=== PATIENT | female | born 1960 | race Hispanic/Latino ===

== ENCOUNTER 2017-06-30 13:30 | Emergency (ER) | payer OTHER ==
[2017-06-30 13:33] VITALS: BMI 27.4
[2017-06-30] MEDS ORDERED: Sodium Chloride 0.9% 1,000 ML IV STA (13:45)
--- NOTE | 2017-06-30 13:49 | ED PDOC ---
HPI: Abdomen Time Seen by Provider: 06/30/17 13:35 Chief Complaint (Nursing): Abdominal Pain Chief Complaint (Provider): Abd pain History Per: Patient History/Exam Limitations: no limitations Onset/Duration Of Symptoms: Days (Today) Current Symptoms Are (Timing): Better Additional Complaint(s): Pt. with left upper abd pain and left upper side pain. Went to [facility] and had several nonbloody vomit episodes there. Given toradol and sent to the ED. Currently no pain, nausea, vomit. No weakness, dizziness, chest pain, dysuria, hematuria. Never had this before. No new food or drinks. Past Medical History Reviewed: Nursing Documentation, Vital Signs Vital Signs: Last Vital Signs Temp 97.9 F 06/30/17 13:34 Pulse 68 06/30/17 13:34 Resp 18 06/30/17 13:34 BP 141/75 06/30/17 13:34 Pulse Ox 99 06/30/17 13:49 - Medical History PMH: HTN, Hypercholesterolemia - Surgical History Surgical History: No Surg Hx - Family History Family History: States: Unknown Family Hx - Social History Ex-Smoker (has not smoked in the last 12 months): No Alcohol: None Drugs: Denies - Home Medications Home Medications: Ambulatory Orders Medication Instructions Recorded Ibuprofen [Motrin] 600 mg PO TID 7 Days tab 06/30/17 Tamsulosin [Flomax] 0.4 mg PO DAILY PRN #6 cap 06/30/17 - Allergies Allergies/Adverse Reactions: Allergies Allergy/AdvReac Type Severity Reaction Status Date / Time No Known Allergies Allergy Verified 06/30/17 13:32 Review of Systems ROS Statement: Except As Marked, All Systems Reviewed And Found Negative Gastrointestinal: Positive for: Nausea, Vomiting, Abdominal Pain Musculoskeletal: Positive for: Back Pain Physical Exam - Reviewed Nursing Documentation Reviewed: Yes Vital Signs Reviewed: Yes - Physical Exam Appears: Positive for: Non-toxic, No Acute Distress Head Exam: Positive for: ATRAUMATIC, NORMAL INSPECTION, NORMOCEPHALIC Skin: Positive for: Normal Color, Warm, DRY Eye Exam: Positive for: EOMI, Normal appearance, PERRL ENT: Positive for: Normal ENT Inspection Neck: Positive for: Normal, Painless ROM Cardiovascular/Chest: Positive for: Regular Rate, Rhythm Respiratory: Positive for: CNT, Normal Breath Sounds Gastrointestinal/Abdominal: Positive for: Normal Exam, Bowel Sounds, Soft. Negative for: Tenderness Back: Positive for: Normal Inspection. Negative for: L CVA Tenderness, R CVA Tenderness Extremity: Positive for: Normal ROM. Negative for: Tenderness, Pedal Edema Neurologic/Psych: Positive for: Alert, Oriented - Laboratory Results Result Diagrams: 06/30/17 14:20 06/30/17 14:20 Interpretation Of Abn Labs: 14.1 wbc; mild elevated liver enzymes; bun 26 - ECG ECG: Positive for: Interpreted By Me, Viewed By Me ECG Rhythm: Positive for: Normal QRS, Normal ST Segment, Sinus Rhythm O2 Sat by Pulse Oximetry: 99 Pulse Ox Interpretation: Normal - Progress ED Course And Treament: IMPRESSION: There is a small pericardial effusion. Nonobstructing small calculus lower pole collecting system left kidney. The infiltration changes seen in the left inferior perinephric fat nonspecific. Rule out recently passed calculus. Rule out post infectious/ inflammatory etiology. : Correlation with urinalysis recommended. Urinary bladder incompletely distended which presumably accounts for slight thick-walled appearance correlation with urinalysis suggested. Small calcified uterine fibroid. Appendix is not seen consistent with this patient's history of appendectomy as per chief technologist notation. There are a few scattered colonic diverticula however no radiographic evidence of acute diverticulitis. 1744: Stable. AAOx3. Pain free. No vomit. Had IV fluids. Likely passed stone. Will dc with flomax and motrin. Pt. to fu with pcp for pericardial fluid. Urology for stone. Tolerated PO. Disposition - Clinical Impression Clinical Impression: Abdominal pain, Kidney stone, Pericardial effusion, Dehydration, Elevated liver enzymes - Patient ED Disposition Is Patient to be Admitted: No Counseled Patient/Family Regarding: Studies Performed, Diagnosis, Need For Followup, Rx Given - Disposition Referrals: [facility] [Outside] - 07/01/17 Armen Crocker Jr., MD [Staff Provider[facility] Disposition: Routine/Home Disposition Time: 17:51 Condition: STABLE Additional Instructions: Return if not better in 3 days. You have small amount of fluid around your heart. See the primary care doctor without fail in 2 days for further evaluation and tx. You have mild elevated liver enzymes and need to see your doctor without fail in 2 days. Prescriptions: Ibuprofen [Motrin] 600 mg PO TID 7 Days tab Tamsulosin [Flomax] 0.4 mg PO DAILY PRN #6 cap PRN Reason: Pain Instructions: Kidney Stones (ED), Acute Abdominal Pain (ED), Dehydration (ED), Pericardial Effusion (ED) Forms: [facility] [employer] (French), [facility] ED School/Work Excuse
[2017-06-30 14:27] LABS: BASO # 0.1 K/uL (0.0-0.2); BASO % 0.4 % (0.0-2.0); EOS # 0.1 K/uL (0.0-0.7); EOS % 0.5 % (0.0-4.0); LYMPH % 7.2 % (20.0-40.0); MEAN CELL VOLUME 89.7 fl (81.0-99.0); MEAN CORPUSCULAR HEMOGLOBIN 30.4 pg (27.0-31.0); MEAN CORPUSCULAR HGB CONC 33.9 g/dL (33.0-37.0); MEAN PLATELET VOLUME 9.8 fl (7.2-11.7); MONO # 0.7 K/uL (0.0-0.8); MONO % 4.8 % (0.0-10.0); NEUT # 12.3 K/uL (1.8-7.0); NEUT % 87.1 % (50.0-75.0); NRBC % 0.1 % (0.0-0.0); PLATELET COUNT 240 K/uL (130-400); WHITE BLOOD COUNT 14.1 K/uL (4.8-10.8)
[2017-06-30 14:36] LABS: ALB/GLOB RATIO 1.7 (1.0-2.1); ALKALINE PHOSPHATASE 56 U/L (38-126); ALT/SGPT 67 U/L (9-52); AST/SGOT 41 U/L (14-36); BILIRUBIN,TOTAL 0.5 mg/dl (0.2-1.3); BLOOD UREA NITROGEN 26 mg/dl (7-17); CALCIUM 9.7 mg/dL (8.4-10.2); CARBON DIOXIDE 28 mmol/L (22-30); CHLORIDE 106 mmol/L (98-107); GFR AFRICAN-AMERICAN > 60; GLUCOSE,RANDOM 104 mg/dL (65-105); LIPASE 115 U/L (23-300); POTASSIUM 4.1 MMOL/L (3.6-5.0); SODIUM 145 mmol/l (132-148); TOTAL PROTEIN 7.9 G/DL (6.3-8.2)
[2017-06-30 15:03] LABS: NEUTROPHIL 86 % (42-75); TOTAL CELLS COUNTED 100
--- NOTE | 2017-06-30 17:36 | CT ---
PROCEDURE: CT abdomen pelvis dated 06/30/2017. HISTORY: R/O stone COMPARISON: None. TECHNIQUE: Contiguous axial images of the abdomen and pelvis performed without oral or intravenous contrast. Coronal and Sagittal reformats generated. Radiation dose: Total exam DLP = 963.19 mGy-cm. This CT exam was performed using one or more of the following dose reduction techniques: Automated exposure control, adjustment of the mA and/or kV according to patient size, and/or use of iterative reconstruction technique. FINDINGS: LOWER THORAX: Lung bases clear. No focal consolidation. No effusion or basilar pneumothorax. There is tiny hiatal hernia. Heart size is borderline/ mildly enlarged. There is a small pericardial effusion. LIVER: The liver exhibits normal size measuring approximately 12.8 cm in CC dimension. No obvious hepatic mass collection or calcification. GALLBLADDER AND BILE DUCTS: The gallbladder is physiologically distended. No evidence of intraluminal gallbladder calculi. PANCREAS: The unenhanced pancreas appears grossly unremarkable. . SPLEEN: Spleen exhibits normal size and attenuation pattern. There appears to be tiny splenule adjacent to the posterior inferior margin of the main body of the spleen ADRENALS: No adrenal masses. KIDNEYS AND URETERS: Kidneys demonstrate relatively symmetric size. There is a small approximately 3.8 mm nonobstructing calculi lower pole collecting system left kidney. Mild infiltration changes in the left inferior perinephric fat nonspecific. Rule out recently passed renal calculus versus post infectious/ inflammatory etiology. . No evidence of dimple hydronephrosis. BLADDER: Urinary bladder appears incompletely distended which may account for mid minimal bladder wall thickening. No evidence of intraluminal urinary bladder calculi. REPRODUCTIVE: There is a small approximately 12.7 x 9.5 mm elliptical shaped exophytic calcification near right aspect of the uterine fundus that probably represents an exophytic calcified uterine fibroid. APPENDIX: Appendix is not seen with any certainty consistent with this patient's history of appendectomy as per technologist notation. BOWEL: Evaluation of the bowel is limited due to the lack of oral contrast material. The stomach is incompletely distended which presumably accounts for thick-walled appearance. Gastritis or other intrinsic/invasive wall lesion not excluded. Visualized loops of small bowel exhibit normal contour and caliber. No evidence of acute mechanical small bowel obstruction. Stool and air seen throughout the colon. There are few scattered colonic diverticula however no radiographic evidence of acute diverticulitis. No definitive mural wall thickening. PERITONEUM: Unremarkable. No fluid collection. No free air. Small fat containing left inguinal hernia. . Small fat containing umbilical hernia. LYMPH NODES: Unremarkable. No enlarged lymph nodes. VASCULATURE: Mild partially calcified atherosclerotic plaque seen along the abdominal aorta and iliac arteries. No evidence of aneurysm. BONES: No fracture or destructive lesion. OTHER FINDINGS: None. IMPRESSION: There is a small pericardial effusion. Nonobstructing small calculus lower pole collecting system left kidney. The infiltration changes seen in the left inferior perinephric fat nonspecific. Rule out recently passed calculus. Rule out post infectious/ inflammatory etiology. : Correlation with urinalysis recommended. Urinary bladder incompletely distended which presumably accounts for slight thick-walled appearance correlation with urinalysis suggested. Small calcified uterine fibroid. Appendix is not seen consistent with this patient's history of appendectomy as per food technologist notation. There are a few scattered colonic diverticula however no radiographic evidence of acute diverticulitis.
[2017-06-30 18:31] VITALS: BP 138/78; PULSE 69; RESP 19; TEMP 98.1; O2SAT 100
--- NOTE | 2017-07-01 11:25 | CARD ---
APPROVED REPORT EKG Measurement Heart [id number] NC [id number] <Conclusion> Normal sinus rhythm Normal ECG
== END 2017-06-30 18:30 | disposition home or self-care (01) ==
LOC: H.ER 13:30
DX: E86.0 Dehydration (principal); N20.0 Calculus of kidney; I31.3 Pericardial effusion (noninflammatory); R94.5 Abnormal results of liver function studies; D25.9 Leiomyoma of uterus, unspecified; E78.00 Pure hypercholesterolemia, unspecified; I10 Essential (primary) hypertension; Z87.891 Personal history of nicotine dependence; Z90.49 Acquired absence of other specified parts of digestive tract
CPT/HCPCS: 74176; 80053; 83690; 85025; 93005; 96374; 99282; J2405; J7040

== ENCOUNTER 2017-07-03 10:29 | Emergency (ER) | payer OTHER ==
[2017-07-03 10:29] VITALS: BMI 27.4
[2017-07-03 10:34] VITALS: TEMP 98
--- NOTE | 2017-07-03 10:59 | ED PDOC ---
HPI: Abdomen Time Seen by Provider: 07/03/17 10:36 Chief Complaint (Nursing): GI Problem Chief Complaint (Provider): Flank pain History Per: Patient History/Exam Limitations: no limitations Onset/Duration Of Symptoms: Hrs Outside of [place] travel?: No Current Symptoms Are (Timing): Still Present Location Of Pain/Discomfort: Other (flanks) Quality Of Discomfort: "Pain" Associated Symptoms: Nausea, Vomiting, Back Pain. denies: Diarrhea Additional Complaint(s): 56yo female with past medical history of hypertension, hypercholesterolemia, presents to ED for evaluation of flank pain, present since 2AM today. Patient was seen in this ED 3 days ago for similar complaints and was diagnosed with kidney stones. Patient states she took two tablets of Motrin today for her pain with some relief. She denies any fever, chills, diarrhea. No other complaints. CT Impression from 06/30/17 IMPRESSION: There is a small pericardial effusion. Nonobstructing small calculus lower pole collecting system left kidney. The infiltration changes seen in the left inferior perinephric fat nonspecific. Rule out recently passed calculus. Rule out post infectious/ inflammatory etiology. : Correlation with urinalysis recommended. Urinary bladder incompletely distended which presumably accounts for slight thick-walled appearance correlation with urinalysis suggested. Small calcified uterine fibroid. Appendix is not seen consistent with this patient's history of appendectomy as per certified cytotechnologist notation. There are a few scattered colonic diverticula however no radiographic evidence of acute diverticulitis. Past Medical History Reviewed: Historical Data, Nursing Documentation, Vital Signs Vital Signs: Last Vital Signs Temp 98.0 F 07/03/17 10:34 Pulse 78 07/03/17 12:30 Resp 14 07/03/17 12:30 BP 132/81 07/03/17 12:30 Pulse Ox 98 07/03/17 14:57 - Medical History PMH: HTN, Hypercholesterolemia Denies: Diabetes - Surgical History Surgical History: Appendectomy, Tonsillectomy - Family History Family History: States: No Known Family Hx, Unknown Family Hx - Home Medications Home Medications: Ambulatory Orders Medication Instructions Recorded Ibuprofen [Motrin] 600 mg PO TID 7 Days tab 06/30/17 Tamsulosin [Flomax] 0.4 mg PO DAILY PRN #6 cap 06/30/17 Ciprofloxacin HCl [Cipro] 500 mg PO BID #14 tablet 07/03/17 Tamsulosin [Flomax] 0.4 mg PO DAILY #10 cap 07/03/17 oxyCODONE/Acetaminophen [Percocet 1 ea PO Q6 PRN #12 tab 07/03/17 5/325 mg Tab] - Allergies Allergies/Adverse Reactions: Allergies Allergy/AdvReac Type Severity Reaction Status Date / Time No Known Allergies Allergy Verified 06/30/17 13:32 Review of Systems ROS Statement: Except As Marked, All Systems Reviewed And Found Negative Constitutional: Negative for: Fever, Chills Gastrointestinal: Positive for: Nausea, Vomiting, Abdominal Pain. Negative for : Diarrhea Physical Exam - Reviewed Nursing Documentation Reviewed: Yes Vital Signs Reviewed: Yes - Physical Exam Appears: Positive for: Uncomfortable Head Exam: Positive for: ATRAUMATIC Skin: Positive for: Normal Color Eye Exam: Positive for: Normal appearance Neck: Positive for: Supple Cardiovascular/Chest: Positive for: Regular Rate, Rhythm Respiratory: Positive for: Normal Breath Sounds. Negative for: Respiratory Distress Gastrointestinal/Abdominal: Positive for: Soft. Negative for: Tenderness Back: Positive for: Normal Inspection. Negative for: L CVA Tenderness, R CVA Tenderness Extremity: Positive for: Normal ROM. Negative for: Deformity, Swelling Neurologic/Psych: Positive for: Alert, Oriented - Laboratory Results Result Diagrams: 07/03/17 11:05 07/03/17 11:05 - ECG O2 Sat by Pulse Oximetry: 98 (RA) Pulse Ox Interpretation: Normal Medical Decision Making Medical Decision Making: Time: 1051 Impression: renal colic due to residual kidney stone; UTI Plan: -- Labs -- IV Fluids -- US Renal -- Zofran 4 mg -- Toradol 15 mg Reassess Time: 1420 --US renal FINDINGS: RIGHT KIDNEY: Measures: 10.6 cm. Normal in size, contour and echogenicity. No stone, solid mass lesion or hydronephrosis visualized. LEFT KIDNEY: Measures: 10.9 cm. Normal in size, contour and echogenicity. No stone, solid mass lesion or hydronephrosis visualized. OTHER FINDINGS: None. IMPRESSION: No nephrolithiasis or hydronephrosis. Time: 1449 --Upon provider reevaluation, patient is feeling much better, medically stable and requires no further treatment in the ED at this time. Patient will be discharged home with Rx for Cipro 500mg, Percocet 5/325mg and Flomax. Counseling was provided and all questions were answered regarding diagnosis. There is agreement to discharge plan and need for follow up with PCP in 2-3 days. Return if symptoms persist or worsen. Clinical Impression: Left-sided renal colic; kidney stones Scribe Attestation: Documented by Leyda Jacobs acting as a scribe for Silvano Vallejo MD. Provider Attestation: All medical record entries made by the Scribe were at my direction and personally dictated by me. I have reviewed the chart and agree that the record accurately reflects my personal performance of the history, physical exam, medical decision making, and the department course for this patient. I have also personally directed, reviewed, and agree with the discharge instructions and disposition. Disposition - Clinical Impression Clinical Impression: Renal colic on left side, Kidney stone - Patient ED Disposition Is Patient to be Admitted: No Doctor Will See Patient In The: Office Counseled Patient/Family Regarding: Studies Performed, Diagnosis, Need For Followup - Disposition Referrals: Armen Crocker Jr., MD [Staff Provider] - Disposition: Routine/Home Disposition Time: 14:49 Condition: GOOD Additional Instructions: Follow up with your PCP in 2-3 days. Take your medications as instructed. Return for worsening. You will be called in 2 days. Prescriptions: Ciprofloxacin HCl [Cipro] 500 mg PO BID #14 tablet oxyCODONE/Acetaminophen [Percocet 5/325 mg Tab] 1 ea PO Q6 PRN #12 tab PRN Reason: Pain, Severe (8-10) Tamsulosin [Flomax] 0.4 mg PO DAILY #10 cap Instructions: Renal Colic (ED) Forms: [employer] (Irish)
[2017-07-03 11:13] LABS: BASO # 0.1 K/uL (0.0-0.2); BASO % 0.4 % (0.0-2.0); EOS # 0.1 K/uL (0.0-0.7); EOS % 0.4 % (0.0-4.0); HEMATOCRIT 38.1 % (34.0-47.0); LYMPH # 1.1 K/uL (1.0-4.3); LYMPH % 6.6 % (20.0-40.0); MEAN CELL VOLUME 90.3 fl (81.0-99.0); MEAN CORPUSCULAR HEMOGLOBIN 30.2 pg (27.0-31.0); MEAN CORPUSCULAR HGB CONC 33.5 g/dL (33.0-37.0); MEAN PLATELET VOLUME 9.8 fl (7.2-11.7); MONO # 0.9 K/uL (0.0-0.8); MONO % 5.6 % (0.0-10.0); NEUT # 13.9 K/uL (1.8-7.0); NRBC % 0.1 % (0.0-0.0); RED CELL DISTRIBUTION WIDTH 12.9 % (11.5-14.5)
[2017-07-03] MEDS: Sodium Chloride 0.9% 1,000 ML IV STA (11:23)
[2017-07-03 11:28] LABS: BLOOD UREA NITROGEN 26 mg/dl (7-17); CALCIUM 9.6 mg/dL (8.4-10.2); CARBON DIOXIDE 26 mmol/L (22-30); CHLORIDE 104 mmol/L (98-107); GFR AFRICAN-AMERICAN > 60; GLUCOSE,RANDOM 109 mg/dL (65-105); POTASSIUM 4.2 MMOL/L (3.6-5.0); SODIUM 139 mmol/l (132-148)
[2017-07-03] MEDS: HYDROmorphone 0.5 mg/0.5 ml ISec IVP STA (12:28)
[2017-07-03 12:58] VITALS: BP 132/81; PULSE 78; RESP 14
--- NOTE | 2017-07-03 14:22 | US ---
PROCEDURE: Ultrasound of the Kidneys HISTORY: left flank pain COMPARISON: CT abdomen and pelvis from 06/30/2017 TECHNIQUE: Grayscale imaging was performed. FINDINGS: RIGHT KIDNEY: Measures: 10.6 cm. Normal in size, contour and echogenicity. No stone, solid mass lesion or hydronephrosis visualized. LEFT KIDNEY: Measures: 10.9 cm. Normal in size, contour and echogenicity. No stone, solid mass lesion or hydronephrosis visualized. OTHER FINDINGS: None. IMPRESSION: No nephrolithiasis or hydronephrosis.
[2017-07-03 14:33] VITALS: O2SAT 98
== END 2017-07-03 15:37 | disposition home or self-care (01) ==
LOC: H.ER 10:29
DX: N20.0 Calculus of kidney (principal); D25.9 Leiomyoma of uterus, unspecified; E78.00 Pure hypercholesterolemia, unspecified; I10 Essential (primary) hypertension; I31.3 Pericardial effusion (noninflammatory); Z90.49 Acquired absence of other specified parts of digestive tract
CPT/HCPCS: 76770; 80048; 85025; 96374; 96375; 99283; J1170; J1885; J2405; J7040